=== PATIENT | female | born 1975 | race African-American/Black ===

== ENCOUNTER 2017-01-04 05:11 | Emergency (ER) | payer OTHER ==
--- NOTE | ~2017-01-04 | CR253 ---
[facility] A Service of [facility] RADIOLOGY TEXT RESULTS PATIENT: KIP UMANZOR LOCATION: [facility] : 79 UNIT #: [id number] AGE: [address]: Jones Ward MD SEX: F ORDER DR: [id number] [facility] [address] [place], [place] [address] [id number] E MR#: [id number] Acc #: [id number] NAME: KIP UMANZOR : 1975 SEX: F STUDY DATE/TIME: 01/04/2017 5:46 UNIT: [facility] ROOM: STUDY DESCRIPTION: CR Tibia and Fibula 2 Views Rt Attending Physician: Jones Ward M.D. Ordering Physician: Arnold Paez, [id number] Primary Care Physician: Primary Care Physician No MEDICAL IMAGING REPORT This report is preliminary unless electronic signature is present EXAM Right tibia-fibula series 01/04/2017. HISTORY 41-year-old female in the ED complaining of glass laceration to the midportion of the lower leg. Injury tonight. TECHNIQUE AP and lateral radiographs of the right tibia and fibula were obtained. FINDINGS No radiopaque soft tissue foreign body is identified. No fracture or other acute osseous abnormality. 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 IMPRESSION 1. Soft tissue laceration with no visible radiopaque soft tissue foreign body. 2. No acute osseous abnormality. 3. Degenerative arthropathy at the knee joint. Dictated by... Cosme Jordan M.D. THIS IS AN ELECTRONICALLY VERIFIED REPORT Cosme Jordan M.D. at 01/04/2017 3:06 PM AILEEN/alma rosa TD: 01/04/2017 12:05 JOB #: [id number] MEDICAL IMAGING REPORT COPY
[~2017-01-04 05:11] MED LIST: ACETAMINOPHEN500 M3 PO; ACETAMINOPHEN650 M4 PO; AUGMENTIN PO; DARVOCET-N 1001 TAB; FLAGYL PO; FLEXERIL PO; IBUPROFEN800 MG PO; IMODIUM2 MG PO; LORTAB 5/500 TA1 TA1 PO; MOBIC PO; NAPROXEN; NORCO 5/325 TAB1 TAB PO; PHENERGAN25 M1 PO; PHENERGAN25 MG PO; PROVERA PO; ULTRAM PO
== END 2017-01-04 06:10 | disposition home or self-care (01) ==
LOC: CED 05:11
DX: F17.210 Nicotine dependence, cigarettes, uncomplicated (principal); W18.09XA Striking against other object with subsequent fall, initial encounter; Y92.009 Unspecified place in unspecified non-institutional (private) residence as the place of occurrence of the external cause
CPT/HCPCS: 12032; 73590; 99283

== ENCOUNTER → 2017-01-21 18:45 | Emergency (ER) | payer OTHER | END | disposition home or self-care (01) | LOC: CFTX 18:45 | DX: S81.811D Laceration without foreign body, right lower leg, subsequent encounter (principal); Z23 Encounter for immunization | CPT/HCPCS: 90471; 90715; 99282 ==